=== PATIENT | male | born 1995 | race Caucasian/White ===

== ENCOUNTER → 2016-09-13 | Outpatient (CLI) | payer BC ==
--- NOTE | 2016-09-13 15:13 | CR ---
EXAMINATION: Left knee HISTORY: Pain COMPARISON: None TECHNIQUE: 3 views FINDINGS/IMPRESSION: There is no acute osseous abnormality, dislocation, or fracture identified. Bon e mineralization and joint spaces appear normal. No soft tissue swelling or joint effusion.
== END | disposition home or self-care (01) ==
LOC: MW.DI 10:54 → MW.DICHC 10:54
PROVIDERS: ATTEND Physician Assistant
DX: M25.562 Pain in left knee (principal)
CPT/HCPCS: 73562-26-LT; 73562-LT

== ENCOUNTER 2017-01-21 22:18 | Emergency (ER) | payer BC, OTHER ==
--- NOTE | 2017-01-21 22:35 | EDM.PDOC ---
ED HPI GENERAL MEDICAL PROBLEM - General Chief Complaint: Lower Extremity Injury/Pain Stated Complaint: PAIN LT TOE Time Seen by Provider: 01/21/17 23:58 - History of Present Illness INITIAL COMMENTS - FREE TEXT/NARRATIVE: HISTORY AND PHYSICAL: History of present illness: Patient is 21-year-old white male sensory concern of acute injury to his left foot when a fork was dropped on the first digit of his left foot he comes with ecchymosis pain swelling and discomfort this occurred prior to arrival he denies other trauma or concern Review of systems: As per history of present illness and below otherwise all systems reviewed and negative. Past medical history: As per history of present illness and as reviewed below otherwise noncontributory. Surgical history: As per history of present illness and as reviewed below otherwise noncontributory. Social history: No reported history of drug or alcohol abuse. Family history: As per history of present illness and as reviewed below otherwise noncontributory. Physical exam: HEENT: Atraumatic, normocephalic, pupils reactive, negative for conjunctival pallor or scleral icterus, mucous membranes moist, throat clear, neck supple, nontender, trachea midline. Lungs: Clear to auscultation, breath sounds equal bilaterally, chest nontender. Heart: S1S2, regular, negative for clicks, rubs, or JVD. Abdomen: Soft, nondistended, nontender. Negative for masses or hepatosplenomegaly. Negative for costovertebral tenderness. Pelvis: Stable nontender. Genitourinary: Deferred. Rectal: Deferred. Extremities: Patient has moderate swelling with ecchymosis noted over dorsal aspect of the first digit of his left foot is no gross deformity no crepitation CMS neurovascular exam is unremarkable Neuro: Awake, alert, oriented. Cranial nerves II through XII unremarkable. Cerebellum unremarkable. Motor and sensory unremarkable throughout. Exam nonfocal. Diagnostics: X-ray left foot Therapeutics: To be determined Impression: #1 acute injury left foot (blunt force trauma) Definitive disposition and diagnosis as appropriate pending reevaluation and review of above. Left 1-Hallux Pain Score (Numeric/FACES): 8 - Related Data Allergies Allergy/AdvReac Type Severity Reaction Status Date / Time No Known Allergies Allergy Verified 06/15/14 13:46 Home Meds: Home Meds . [No Known Home Meds] 01/06/15 [History] Past Medical History Cardiovascular History: Reports: Heart Murmur - Past Surgical History HEENT Surgical History: Reports: Myringotomy w Tube(s) Social & Family History - Tobacco Use Smoking Status *Q: Former Smoker Years of Tobacco use: 2 Packs/Tins Daily: 0.3 Second Hand Smoke Exposure: No - Alcohol Use Days Per Week of Alcohol Use: 1 Number of Drinks Per Day: 1 Total Drinks Per Week: 1 - Recreational Drug Use Recreational Drug Use: No - Living Situation & Occupation Living situation: Reports: Single Occupation: Employed Review of Systems - Review of Systems Review Of Systems: ROS reveals no pertinent complaints other than HPI. ED EXAM, GENERAL - Physical Exam Exam: See Below (See dictation) Course - Vital Signs Last Recorded V/S: Last Vital Signs Temp 36.2 C 01/21/17 22:28 Pulse 88 01/21/17 22:28 Resp 16 01/21/17 22:28 BP 132/94 H 01/21/17 22:28 Pulse Ox 98 01/21/17 22:28 - Orders/Labs/Meds Orders: Active Orders 24 hr Category Date Time Status Foot Comp Min 3V Lt [CR] Stat Exams 01/21/17 22:23 Taken Departure - Departure Time of Disposition: 23:58 Disposition: Home, Self-Care 01 Condition: Good Clinical Impression: Toe fracture - Discharge Information Forms: ED Department Discharge Additional Instructions: The following information is given to patients seen in the emergency department who are being discharged to home. This information is to outline your options for follow-up care. We provide all patients seen in our emergency department with a follow-up referral. The need for follow-up, as well as the timing and circumstances, are variable depending upon the specifics of your emergency department visit. If you don't have a primary care physician on staff, we will provide you with a referral. We always advise you to contact your personal physician following an emergency department visit to inform them of the circumstance of the visit and for follow-up with them and/or the need for any referrals to a consulting specialist. The emergency department will also refer you to a specialist when appropriate. This referral assures that you have the opportunity for followup care with a specialist. All of these measure are taken in an effort to provide you with optimal care, which includes your followup. Under all circumstances we always encourage you to contact your private physician who remains a resource for coordinating your care. When calling for followup care, please make the office aware that this follow-up is from your recent emergency room visit. If for any reason you are refused follow-up, please contact the [facility] emergency department at and asked to speak to the emergency department charge nurse. [facility] Professional [address], [address] [place] [address] Posterior mold crutches as directed hydrocodone as prescribed follow-up orthopedic clinic above as discussed return as needed as discussed - My Orders Last 24 Hours: My Active Orders 01/21/17 22:23 Foot Comp Min 3V Lt [CR] Stat - Assessment/Plan Last 24 Hours: My Active Orders 01/21/17 22:23 Foot Comp Min 3V Lt [CR] Stat
[2017-01-22 00:17] VITALS: BP 126/69
--- NOTE | 2017-01-22 10:38 | CR ---
EXAM DATE: 01/21/17 PATIENT'S AGE: 21 Patient: NANCY TIDWELL Facility: [place], [place] Site . Site : 1995 Study: XRay Extremity foot [id number]/14/2017 10:47:46 PM Ordering Physician: Doctor Alvarado Final Report: Indication: Crushing injury Technique: Three views left foot Comparison: None Findings: Bones: Alignment is normal. There is a distal tuft fracture of the left 1st toe. Joint spaces: Unremarkable. Soft tissues: Soft tissue swelling of the 1st toe. Impression: Distal tuft fracture of the left 1st toe. Dictated by Nicole Jaquez MD @ Jan 21 2017 11:01PM (Electronic Signature) Report Signed by Proxy. BAUDILIO
== END 2017-01-22 00:10 | disposition home or self-care (01) ==
LOC: MW.ED 22:18
DX: S92.422A Displaced fracture of distal phalanx of left great toe, initial encounter for closed fracture (principal); Z96.22 Myringotomy tube(s) status; Z87.891 Personal history of nicotine dependence; W20.8XXA Other cause of strike by thrown, projected or falling object, initial encounter
CPT/HCPCS: 73630-26-LT; 73630-LT; 99283; 99284

== ENCOUNTER 2019-01-16 23:37 | Emergency (ER) | payer BC, OTHER ==
[2019-01-16] MEDS ORDERED: Tetracaine HCl/PF 0.5% 4 ML Bottle EYELF ONE (23:41)
--- NOTE | 2019-01-17 00:05 | EDM.PDOC ---
ED HPI GENERAL MEDICAL PROBLEM - General Chief Complaint: Eye Problems Stated Complaint: LEFT EYE ISSUE Time Seen by Provider: 01/16/19 23:41 - History of Present Illness INITIAL COMMENTS - FREE TEXT/NARRATIVE: HISTORY AND PHYSICAL: History of present illness: The patient is a 23-year-old male who does not wear glasses or contact lenses and presents with complaints of a foreign body sensation in his left eye that started evening/yesterday, greater than 24 hours ago. He says he doesn' t feel like his vision is blurred but when he blinks he intermittently will feel like there is something in it. He has had some clear tears but no drainage and no trauma to the area. He does not recall any specific event or something could've gotten into his eye. He has no other systemic complaints Review of systems: As per history of present illness and below otherwise all systems reviewed and negative. Past medical history: As per history of present illness and as reviewed below otherwise noncontributory. Surgical history: As per history of present illness and as reviewed below otherwise noncontributory. Social history: No reported history of drug or alcohol abuse. Family history: As per history of present illness and as reviewed below otherwise noncontributory. Physical exam: HEENT: Atraumatic, normocephalic, pupils reactive, EOMs intact, no gross foreign body was visualized on inspection and there is only minimal upper lid edema and some slight scleral injection, on lid flip there is no foreign body underneath the eyelid that is visualized but a sweep was performed, there is an eyelash that is curved down and touching the surface of the cornea which was removed, negative for conjunctival pallor or scleral icterus, mucous membranes moist, throat clear, neck supple, nontender, trachea midline. Lungs: Clear to auscultation, breath sounds equal bilaterally, chest nontender. Heart: S1S2, regular rate and rhythm no overt murmurs Abdomen: Soft, nondistended, nontender. Negative for masses or hepatosplenomegaly. Negative for costovertebral tenderness. Pelvis: Deferred Genitourinary: Deferred. Rectal: Deferred. Extremities: Atraumatic, negative for cords or calf pain. Neurovascular unremarkable. Neuro: Awake, alert, oriented. Cranial nerves II through XII unremarkable. Cerebellum unremarkable. Motor and sensory unremarkable throughout. Exam nonfocal. Diagnostics: Visual acuity per nursing was 20/25 left eye 20/20 right eye Fluoroscein stain was performed after tetracaine was instilled and there was no uptake seen throughout the eye exam and no foreign bodies or abrasions were appreciated. Therapeutics: The patient that I do not see any foreign bodies nor is there any corneal abrasions seen but one of his eyelashes was in an abnormal position and contacting the surface of the cornea on my initial inspection and that was removed. I will give him Dr. Vasquez's information for follow-up and some erythromycin ointment from [facility] Impression: Foreign body sensation to left eye Definitive disposition and diagnosis as appropriate pending reevaluation and review of above. left eye Pain Score (Numeric/FACES): 5 - Related Data Allergies Allergy/AdvReac Type Severity Reaction Status Date / Time No Known Allergies Allergy Verified 01/16/19 23:50 Home Meds: Home Meds . [No Known Home Meds] 06/15/14 [History] Past Medical History Cardiovascular History: Reports: Heart Murmur Respiratory History: Reports: None Gastrointestinal History: Reports: None Genitourinary History: Reports: None Musculoskeletal History: Reports: None Neurological History: Reports: None Psychiatric History: Reports: None Endocrine/Metabolic History: Reports: None Hematologic History: Reports: None Immunologic History: Reports: None Oncologic (Cancer) History: Reports: None Dermatologic History: Reports: None - Infectious Disease History Infectious Disease History: Reports: None - Past Surgical History Head Surgeries/Procedures: Reports: None HEENT Surgical History: Reports: Myringotomy w Tube(s) Musculoskeletal Surgical History: Reports: Other (See Below) Other Musculoskeletal Surgeries/Procedures:: tendon repair Social & Family History - Family History Family Medical History: Noncontributory - Tobacco Use Smoking Status *Q: Never Smoker - Caffeine Use Caffeine Use: Reports: Energy Drinks, Soda - Recreational Drug Use Recreational Drug Use: No - Living Situation & Occupation Living situation: Reports: Single Occupation: Employed ED ROS GENERAL - Review of Systems Review Of Systems: ROS reveals no pertinent complaints other than HPI. ED EXAM GENERAL W FULL EYE - Physical Exam Exam: See Below (See dictation) Course - Vital Signs Last Recorded V/S: Last Vital Signs Temp 36.2 C 01/16/19 23:45 Pulse 81 01/16/19 23:45 Resp 18 01/16/19 23:45 BP 123/87 01/16/19 23:45 Pulse Ox 98 01/16/19 23:45 - Orders/Labs/Meds Orders: Active Orders 24 hr Category Date Time Status Communication Order [RC] STAT Care 01/16/19 23:42 Active Meds: Medications Discontinued Medications Generic Name Dose Route Start Last Admin Trade Name Riccardo PRN Reason Stop Dose Admin Tetracaine HCl 0.5 ml 01/16/19 23:41 01/16/19 23:49 Tetracaine 0.5% Steri-Unit Lily EYELF 01/16/19 23:42 0.5 ml ASDIRECTED ONE Administration Departure - Departure Time of Disposition: 00:04 Disposition: Home, Self-Care 01 Condition: Good Clinical Impression: Sensation of foreign body in eye - Discharge Information Referrals: PCP,None [Primary Care Provider] - Additional Instructions: The following information is given to patients seen in the emergency department who are being discharged to home. This information is to outline your options for follow-up care. We provide all patients seen in our emergency department with a follow-up referral. The need for follow-up, as well as the timing and circumstances, are variable depending upon the specifics of your emergency department visit. If you don't have a primary care physician on staff, we will provide you with a referral. We always advise you to contact your personal physician following an emergency department visit to inform them of the circumstance of the visit and for follow-up with them and/or the need for any referrals to a consulting specialist. The emergency department will also refer you to a specialist when appropriate. This referral assures that you have the opportunity for followup care with a specialist. All of these measure are taken in an effort to provide you with optimal care, which includes your followup. Under all circumstances we always encourage you to contact your private physician who remains a resource for coordinating your care. When calling for followup care, please make the office aware that this follow-up is from your recent emergency room visit. If for any reason you are refused follow-up, please contact the [facility] emergency department at and ask to speak to the emergency department charge nurse. [facility]--ophthalmology [address] [place] [address] Trochanter rub the eye and use cold compresses and wear sunglasses as needed for symptomatic care. Please use the ointment that you have been given from [facility], erythromycin, for comfort until you're followed up in the clinic. Please call the clinic on Saturday morning to be seen by one of the manager of corporate communications telling them that you're in the ED and wants follow-up care. Return to ER as needed and as discussed - My Orders Last 24 Hours: My Active Orders 01/16/19 23:42 Communication Order [RC] STAT - Assessment/Plan Last 24 Hours: My Active Orders 01/16/19 23:42 Communication Order [RC] STAT
[2019-01-17 00:20] VITALS: BP 124/77; PULSE 76
== END 2019-01-17 00:25 | disposition home or self-care (01) ==
LOC: MW.ED 23:37
DX: H57.89 Other specified disorders of eye and adnexa (principal); Z96.22 Myringotomy tube(s) status
CPT/HCPCS: 99283